=== PATIENT | female | born 1970 ===

== ENCOUNTER 2016-06-15 21:03 | Emergency (ER) ==
[2016-06-15] MEDS ORDERED: ACETAMINOPHEN 325 MG TABLET PO ONE (21:43)
--- NOTE | 2016-06-15 22:02 | ER Document Report ---
ED Medical Screen (RME) - General Chief Complaint: Flu Symptoms Stated Complaint: DIFFICULTY BREATHING Mode of Arrival: Ambulatory Information source: Patient Notes: 46-year-old female presents to the emergency department complaining of onset of flulike symptoms this morning. Reports cough, fever, hoarseness of voice, headache, and generalized body aches. I have greeted and performed a rapid initial assessment of this patient. A comprehensive ED assessment and evaluation of the patient, analysis of test results and completion of the medical decision making process will be conducted by additional ED providers. TRAVEL OUTSIDE OF THE [place] IN LAST 30 DAYS: No Past Medical History Renal/ Medical History: Denies: Hx Peritoneal Dialysis Physical Exam - Vital signs Vitals: Temp Pulse Resp BP Pulse Ox 98.4 F 76 16 108/77 100 06/15/16 21:07 06/15/16 21:07 06/15/16 21:07 06/15/16 21:07 06/15/16 21:07 - General General appearance: Alert In distress: None - Respiratory Respiratory status: No respiratory distress Course - Vital Signs Vital signs: Temp Pulse Resp BP Pulse Ox 98.4 F 76 16 108/77 100 06/15/16 21:07 06/15/16 21:07 06/15/16 21:07 06/15/16 21:07 06/15/16 21:07
[2016-06-15] MEDS ORDERED: ONDANSETRON 4 MG TAB.RAPDIS PO ONE (22:09)
[2016-06-15] MEDS ORDERED: ONDANSETRON 4 MG TAB.RAPDIS ONE (22:10)
== END 2016-06-15 23:30 | disposition left against medical advice (07) ==
LOC: ER 21:03
DX: R05 Cough (principal); R50.9 Fever, unspecified; R51 Headache; R49.0 Dysphonia; Z53.20 Procedure and treatment not carried out because of patient's decision for unspecified reasons
CPT/HCPCS: 99283; 87804; S0119